=== PATIENT | male | born 1950 | race Hispanic/Latino ===

== ENCOUNTER 2022-04-24 13:49 | Observation (INO) | payer MEDICARE ==
[~2022-04-24] VITALS: Ht 162.6 cm; Wt 58.5 kg
[2022-04-24] MEDS ORDERED: ZOLPIDEM TARTRATE 5 MG TAB PO PRN (15:15)
[2022-04-24] MEDS ORDERED: DEXTROSE 50% SYRINGE 50 ML IV PRN (15:15)
[2022-04-24] MEDS ORDERED: DIPHENHYDRAMINE HCL INJ 50 MG/ML VIAL IV PRN (15:15)
[2022-04-24] MEDS ORDERED: ENALAPRILAT IV INJ 1.25 MG/ML VIAL IV PRN (15:15)
[2022-04-24] MEDS ORDERED: SODIUM CHLORIDE FLUSH 10 ML SYR INJ PRN (15:15)
[2022-04-24] MEDS ORDERED: ACETAMINOPHEN 325 MG TAB PO PRN (15:15)
[2022-04-24] MEDS ORDERED: FAMOTIDINE 20 MG/2 ML VIAL IV ONE (16:00)
[2022-04-24] MEDS ORDERED: ASPIRIN 81 MG CHEW TAB PO ONE (16:00)
[2022-04-24 17:10] VITALS: BP 111/75
[2022-04-24] MEDS ORDERED: NAPROXEN250 MG PO (17:12)
[2022-04-24] MEDS ORDERED: BACLOFEN10 MG PO (17:12)
[2022-04-24] MEDS ORDERED: GLIPIZIDE ER10 MG PO (17:12)
[2022-04-24] MEDS ORDERED: TYLENOL EXTRA500 MG PO (17:12)
[2022-04-24] MEDS ORDERED: LOSARTAN POTAS100 MG PO (17:12)
[2022-04-24] MEDS ORDERED: TRADJENTA5 MG PO (17:12)
[2022-04-24] MEDS ORDERED: AMLODIPINE BESYL5 MG PO (17:12)
[2022-04-24] MEDS ORDERED: METFORMIN HCL1000 MG PO (17:12)
[2022-04-24] MEDS ORDERED: ATORVASTATIN CA20 MG PO (17:12)
[2022-04-24 17:41] VITALS: BP 111/75
[2022-04-24] MEDS ORDERED: INFLUENZA VIRUS VAC SPLIT INJ 0.5 ML SYR IM SCH (18:00)
[2022-04-24] MEDS ORDERED: PNEUMOCOCCAL VACCINE POLYVALENT 23 MCG/0.5 ML VIAL IM SCH (18:00)
[2022-04-24] MEDS: INSULIN REGULAR, HUMAN 100 UNIT/1 ML SQ SCH ×2 (18:00→21:00)
[2022-04-24] MEDS: METOPROLOL TARTRATE 25 MG TAB PO SCH ×2 (18:04→21:18)
[2022-04-24 20:00] VITALS: BP_SYST 101; BP_SYST 111; BP_DIAS 58; BP_DIAS 66
[2022-04-24 20:45] LABS: CREATINE KINASE MB 0.8 ng/mL (0-5.0)
[2022-04-24] MEDS ORDERED: SIMVASTATIN 40 MG TAB PO SCH (21:00)
[2022-04-24] MEDS: FAMOTIDINE 20 MG TAB PO SCH (21:16)
[2022-04-25] VITALS: BP 110/62
[2022-04-25 04:00] VITALS: BP 100/60
[2022-04-25] MEDS: INSULIN REGULAR, HUMAN 100 UNIT/1 ML SQ SCH (07:30)
[2022-04-25 08:49] VITALS: BP 96/68
[2022-04-25] MEDS ORDERED: ASPIRIN 325 MG TAB EC PO SCH (09:00)
[2022-04-25 09:01] LABS: CREATINE KINASE MB 0.9 ng/mL (0-5.0)
[2022-04-25 09:02] LABS: CHOL/HDL RATIO 3.1 (3.9-4.7)
[2022-04-25] MEDS: FAMOTIDINE 20 MG TAB PO SCH (09:45)
[2022-04-25] MEDS: METOPROLOL TARTRATE 25 MG TAB PO SCH (09:45)
[2022-04-25] MEDS ORDERED: BACLOFEN 10 MG TAB PO PRN (11:15)
[2022-04-25] MEDS ORDERED: AMLODIPINE BESYLATE 5 MG TAB PO SCH (11:15)
[2022-04-25] MEDS ORDERED: ACETAMINOPHEN 325 MG TAB PO PRN (11:15)
[2022-04-25] MEDS ORDERED: GLIPIZIDE 5 MG TAB ER PO SCH (11:30)
[2022-04-25 12:43] VITALS: BP 107/56
[2022-04-25] MEDS ORDERED: IOPAMIDOL 370 MG/ML 100 ML INFUS..BTL INJ ONE (14:09)
[2022-04-25 15:30] VITALS: BP 112/62
[2022-04-25 15:32] LABS: CREATINE KINASE MB 0.8 ng/mL (0-5.0)
[2022-04-25] MEDS ORDERED: LOSARTAN POTASSIUM 100 MG TAB PO SCH (17:00)
[2022-04-25] MEDS ORDERED: ATORVASTATIN 20 MG TAB PO SCH (21:00)
[2022-04-26] MEDS ORDERED: LINAGLIPTIN PO SCH (09:00)
== END 2022-04-25 17:56 | disposition home or self-care (01) ==
LOC: FSED 13:57 → ERHOLD 15:16 → MED/SURG2 16:44
PROVIDERS: ADMIT Internal Medicine; ATTEND Internal Medicine
DX: R07.2 Precordial pain (principal); I10 Essential (primary) hypertension; R94.31 Abnormal electrocardiogram [ECG] [EKG]; E11.9 Type 2 diabetes mellitus without complications; E78.5 Hyperlipidemia, unspecified; Z20.822 Contact with and (suspected) exposure to COVID-19; Z79.84 Long term (current) use of oral hypoglycemic drugs
CPT/HCPCS: 36415 ×2; 71046; 71260; 80053; 80061; 82550 ×2; 82553 ×2; 82948 ×2; 84484 ×2; 85025; 90732; 93005; 99284; G0378 ×2; J1817; Q9967; U0002

== ENCOUNTER 2022-10-05 19:21 | Emergency (ER) | payer MEDICARE ==
[~2022-10-05] VITALS: Ht 160 cm; Wt 58.5 kg
[~2022-10-05 19:21] MED LIST: AMLODIPINE BESYL5 MG PO; ATORVASTATIN CA20 MG PO; BACLOFEN10 MG PO; GLIPIZIDE ER10 MG PO; LOSARTAN POTAS100 MG PO; METFORMIN HCL1000 MG PO; NAPROXEN250 MG PO; TRADJENTA5 MG PO; TYLENOL EXTRA500 MG PO
[2022-10-05 19:48] LABS: BASOPHILS # (AUTO) 0.1 (0.0-0.1); BASOPHILS % 0.5 % (0.0-1.0); EOSINOPHILS # (AUTO) 0.2 (0.0-0.4); EOSINOPHILS % 1.2 % (0.0-6.0); HEMATOCRIT 36.8 % (38.2-49.6); HEMOGLOBIN 12.6 g/dL (14.0-18.0); LYMPHOCYTES # (AUTO) 2.4 (1.0-3.2); LYMPHOCYTES % 18.2 % (18.0-39.1); MEAN CORPUSCULAR HEMOGLOBIN 31.5 pg (28-32); MEAN CORPUSCULAR HGB CONC 34.2 g/dL (31-35); MONOCYTES # (AUTO) 1.1 (0.2-0.8); MONOCYTES % 8.7 % (4.4-11.3); NEUTROPHILS # (AUTO) 9.2 (2.1-6.9); PLATELET COUNT 311 x10e3/uL (140-360)
[2022-10-05 19:56] LABS: INR 0.9; PROTHROMBIN TIME 12.6 seconds (11.9-14.5)
[2022-10-05 19:57] LABS: PARTIAL THROMBOPLASTIN TIME 28.2 seconds (23.8-35.5)
[2022-10-05 20:07] LABS: ANION GAP 19.8 mmol/L (8-16); CREATININE, SERUM 1.41 mg/dL (0.72-1.25); POTASSIUM 3.8 mmol/L (3.5-5.1)
[2022-10-05 20:13] LABS: CREATINE KINASE MB 0.8 ng/mL (0-5.0)
[2022-10-05] MEDS ORDERED: ACETAMINOPHEN-1 EAC4 PO (21:18)
[2022-10-05 21:41] VITALS: BP 121/74
== END 2022-10-05 21:42 | disposition home or self-care (01) ==
LOC: ER 19:59
DX: R07.89 Other chest pain (principal); R10.13 Epigastric pain; M54.9 Dorsalgia, unspecified; G89.29 Other chronic pain; E11.65 Type 2 diabetes mellitus with hyperglycemia; I10 Essential (primary) hypertension; R94.31 Abnormal electrocardiogram [ECG] [EKG]
CPT/HCPCS: 36415; 71046; 80053; 82550; 82553; 83690; 83880; 84484; 85025; 85610; 85730; 93005; 99284